=== PATIENT | male | born 1955 | race Caucasian/White ===

== ENCOUNTER 2020-09-24 13:44 | Emergency (ER) | payer SELFPAY ==
[2020-09-24] MEDS ORDERED: Bacitracin Oint 1 GM U/D Packet TOP ONE (13:52)
--- NOTE | 2020-09-24 13:52 | EDM.PDOC ---
ED HPI GENERAL MEDICAL PROBLEM - General Chief Complaint: Head Injury Stated Complaint: FELL OFF LADDER Time Seen by Provider: 09/24/20 13:45 Source of Information: Reports: Patient, EMS, Old Records History Limitations: Reports: No Limitations - History of Present Illness INITIAL COMMENTS - FREE TEXT/NARRATIVE: 65 yo male was working in a local garage and fell off a ladder. The fall was unwitnessed and Faiza has mild confusion since the fall, so the height from which he fell is uncertain. He was not seen unconscious, so if he did lose consciousness it was very brief. He denies neck pain or nausea. Vitals stable en route per EMS. He is not on any anticoagulants. Is becoming quickly more alert and oriented since the fall. Has a cut to the back of his head. Onset: Today, Sudden Onset Date: 09/24/20 Duration: Minutes: Location: Reports: Head Quality: Reports: Dull (at occiput) Severity: Mild Improves with: Reports: None Worsens with: Reports: Other (touching wound) Context: Reports: Trauma Associated Symptoms: Reports: No Other Symptoms Treatments ALLERGIST/PEDIATRIC PULMONOLOGIST: Reports: Other (see below) (none) Posterior Head Pain Score (Numeric/FACES): 8 - Related Data Allergies Allergy/AdvReac Type Severity Reaction Status Date / Time No Known Allergies Allergy Verified 09/24/20 13:56 Home Meds: Home Meds Indomethacin [Indocin] 50 mg PO DAILY PRN 03/11/15 [History] Lisinopril/Hydrochlorothiazide [Lisinopril-Hctz 20-12.5 mg Tab] 2 each PO DAILY 03/11/15 [History] Past Medical History HEENT History: Reports: Impaired Vision Cardiovascular History: Reports: Hypertension Gastrointestinal History: Reports: GERD Musculoskeletal History: Reports: Arthritis, Gout Neurological History: Reports: Concussion Endocrine/Metabolic History: Reports: Obesity/BMI 30+ - Infectious Disease History Infectious Disease History: Reports: Other (See Below) Other Infectious Disease History: unknown - Past Surgical History HEENT Surgical History: Reports: Naso-Sinus Surgery, Tonsillectomy Musculoskeletal Surgical History: Reports: Arthroscopic Knee, Other (See Below) Social & Family History - Family History Family Medical History: No Pertinent Family History - Caffeine Use Caffeine Use: Reports: Soda Review of Systems - Review of Systems Review Of Systems: See Below Constitutional: Reports: No Symptoms Eyes: Reports: No Symptoms Ears: Reports: No Symptoms Nose: Reports: No Symptoms Mouth/Throat: Reports: No Symptoms Respiratory: Reports: No Symptoms Cardiovascular: Reports: No Symptoms GI/Abdominal: Reports: No Symptoms. Denies: Nausea, Vomiting Genitourinary: Reports: No Symptoms Musculoskeletal: Reports: No Symptoms. Denies: Neck Pain Skin: Reports: Wound (at occiput) Neurological: Reports: Confusion (transient, now resolved). Denies: Dizziness, Headache ED EXAM, GENERAL - Physical Exam Exam: See Below Exam Limited By: No Limitations General Appearance: Alert, WD/WN, No Apparent Distress Eye Exam: Bilateral Eye: EOMI, Normal Inspection, PERRL Ears: Normal External Exam, Normal Canal, Hearing Grossly Normal, Normal TMs Ear Exam: Bilateral Ear: Auricle Normal, Canal Normal, TM normal Nose: Normal Inspection, No Blood Throat/Mouth: Normal Inspection, Normal Lips, Normal Oropharynx, Normal Voice, No Airway Compromise Head: Atraumatic, Normocephalic Neck: Normal Inspection Respiratory/Chest: No Respiratory Distress, Lungs Clear, Normal Breath Sounds, No Accessory Muscle Use Cardiovascular: Regular Rate, Rhythm, No Edema GI/Abdominal: Soft, Non-Tender Back Exam: Normal Inspection. No: Paraspinal Tenderness, Vertebral Tenderness Extremities: Normal Inspection, Normal Range of Motion, No Pedal Edema, Pedal Edema. No: Non-Tender, Limited Range of Motion, Increased Warmth, Redness Neurological: Alert, Oriented, CN II-XII Intact, Normal Cognition, No Motor/Sensory Deficits Psychiatric: Normal Affect, Normal Mood Skin Exam: Warm, Dry, Normal Color, No Rash, Wound/Incision (dried and clotting blood at occiput) ED TRAUMA PROCEDURES - Laceration/Wound Repair [place] Lac/Wound Length In cm: 4 Appearance: Irregular (V shaped), Clean Distal NVT: Neuro & Vascular Intact, No Tendon Injury Anesthetic Type: Local Local Anesthesia - Lidocaine (Xylocaine): 1% with EPI Local Anesthetic Volume: Other (7 ml) Skin Prep: Saline Exploration/Debridement/Repair: Wound Explored Closed With: Capri # of Sutures: 8 Drain Placement: No Sterile Dressing Applied: None Tetanus Status Addressed: Yes Complications: No Course - Vital Signs Last Recorded V/S: Last Vital Signs Temp 36.3 C 09/24/20 14:11 Pulse 65 09/24/20 14:11 Resp 18 05/04/21 14:11 BP 188/103 H 09/24/20 14:11 Pulse Ox 97 09/24/20 14:11 - Orders/Labs/Meds Meds: Medications Discontinued Medications Generic Name Dose Route Start Last Admin Trade Name Mikhail PRN Reason Stop Dose Admin Bacitracin 1 dose 09/24/20 13:52 09/24/20 14:20 Bacitracin Oint 1 Gm U/D Packet TOP 09/24/20 13:53 1 dose ONETIME ONE Administration Lidocaine/Epinephrine 10 ml 09/24/20 14:37 Lidocaine 1% With Epinephrine 1:100,000 50 Ml Mdv SUBCUT 09/24/20 14:38 STAT STA Departure - Departure Time of Disposition: 15:05 Disposition: Home, Self-Care 01 Condition: Fair Clinical Impression: Scalp laceration Qualifiers: Encounter type: initial encounter Qualified Code(s): S01.01XA - Laceration without foreign body of scalp, initial encounter Mild concussion Qualifiers: Encounter type: initial encounter Loss of consciousness presence/duration: without LOC Qualified Code(s): S06.0X0A - Concussion without loss of con sciousness, initial encounter HTN (hypertension) Qualifiers: Hypertension type: unspecified Qualified Code(s): I10 - Essential (primary) hypertension - Discharge Information *PRESCRIPTION DRUG MONITORING PROGRAM REVIEWED*: Not Applicable *COPY OF PRESCRIPTION DRUG MONITORING REPORT IN PATIENT VICKIE: Not Applicable Instructions: Laceration Care, Adult, [id number], Concussion, Adult, [id number], Hypertension, Adult, [id number] Forms: ED Department Discharge Additional Instructions: Off work today and tomorrow due to your mild concussion. Clean your scalp wound twice daily with 1/2 water and 1/2 peroxide, or soap and water. Dry. Apply antibiotic ointment. Rest. No exertion today or tomorrow. Clinic follow up regarding your elevated BP today. Michie out in 9-10 days. Acetaminophen for pain relief as needed. Sepsis Event Note (ED) - Focused Exam Vital Signs: Vital Signs Temp Pulse Resp BP Pulse Ox 09/24/20 14:11 36.3 C 65 18 188/103 H 97 09/24/20 14:10 71 188/103 H 97 09/24/20 13:50 36.3 C 70 20 191/114 H 98
[2020-09-24 14:12] VITALS: BP 188/103; PULSE 65
[2020-09-24] MEDS ORDERED: Lidocaine 1% with EPINEPHrine 1:100,000 50 ML MDV SUBCUT STA (14:37)
== END 2020-09-24 15:18 | disposition home or self-care (01) ==
LOC: JP.ED 13:44
DX: S06.0X0A Concussion without loss of consciousness, initial encounter (principal); S01.01XA Laceration without foreign body of scalp, initial encounter; I10 Essential (primary) hypertension; E66.9 Obesity, unspecified; Z68.34 Body mass index [BMI] 34.0-34.9, adult; W11.XXXA Fall on and from ladder, initial encounter
CPT/HCPCS: 12002; 99284-25